=== PATIENT | female | born 1985 | race Caucasian/White ===

== ENCOUNTER 2020-06-09 14:20 | Emergency (ER) | payer BC | END 2020-06-09 15:59 | disposition left against medical advice (07) | LOC: EDBD 14:20 → EDH 14:20 | DX: M79.672 Pain in left foot (principal); R21 Rash and other nonspecific skin eruption; Z90.49 Acquired absence of other specified parts of digestive tract; Z53.21 Procedure and treatment not carried out due to patient leaving prior to being seen by health care provider ==